=== PATIENT | male | born 1955 | race Hispanic/Latino ===

== ENCOUNTER 2022-07-28 11:44 | Emergency (ER) | payer MEDICARE, OTHER ==
--- OUTSIDE RECORDS SUMMARY | 2022-07-28 11:50 | XMS REPORT | Continuity of Care Document ---
:1955 Author Organization [facility] t Address [address] [place] [address] Care Team Providers Name Role Phone Breanne Mcfarland MD Primary Care Physician [phone] Armando Ugalde Attending Clinician Unavailable BEAU RIOS Attending Clinician Unavailable Beau Bradley Attending Clinician Rian Pedraza PT, Corina Attending Clinician Unavailable Marivel Myrick MD Attending Clinician MARIVEL MYRICK Attending Clinician Unavailable Breanne Mcfarland MD Attending Clinician Lab, Ang - Db Attending Clinician Unavailable BREANNE MCFARLAND Attending Clinician Unavailable Lianne Stephenson MD Attending Clinician LIANNE STEPHENSON Attending Clinician Unavailable Doctor Unassigned, [place] Attending Clinician Unavailable Servando Turner MD Attending Clinician SERVANDO TURNER Attending Clinician Unavailable CONNIE FRY Attending Clinician Unavailable Anjelica Guzman MD Attending Clinician ANJELICA GUZMAN Attending Clinician Unavailable Pob, [facility] Main Attending Clinician Unavailable Keenan Gallegos MD Attending Clinician KEENAN GALLEGOS Attending Clinician Unavailable Lab, Ad[facility] Fam Pob I Attending Clinician Unavailable Abdoul Ann DO Attending Clinician SANJAY CORTES Attending Clinician Unavailable Elise Arrington Attending Clinician ELISE GARCIA Attending Clinician Unavailable Sanjay Cortes MD Attending Clinician Connie Fry MD Attending Clinician Provider, [facility] Attending Clinician Unavailable REHANA CORDERO Attending Clinician Unavailable 1, [facility] Attending Clinician Unavailable BEAU RIOS Admitting Clinician Unavailable CONNIE FRY Admitting Clinician Unavailable Payers Payer Name Policy Type Policy Number Effective Date Expiration Date Ariel purvis [facility] [id number] 2022 (MEDICARE 00:00:00 REPLACEMENT HMO) YUDELKA/SOPHIA [id number] 2021 MEDICARE ADVANTAGE 00:00:00 [facility] [id number] 2018 2021 CHOICE 00:00:00 00:00:00 Problems Condition Condition Condition Status Onset Resolution Last Treating Co mments Source Name Details Category Date Date Treatment Clinician Date Cyst of Cyst of Disease Active Univers left left 7-30 ity of kidney kidney 00:00: [place] 00 Medical Branch Family Family Disease Active 2019- Univers history of history of 7-30 it y of renal renal 00:00: [place] cancer cancer 00 Medical Branch Facial Facial Disease Active 2019- Univers rash rash 7-30 ity of 00:00: [place] 00 Medical Branch Thrombocyt Thrombocyt Disease Active 2019- U nivers openia openia 7-16 ity of 00:00: [place] 00 Medical Branch Abnormal Abnormal Disease Active 2019- Overview: Un kyrie thyroid thyroid 7-16 Formattin ity o f function function 00:00: g of this [place] as test test 00 note Medical might be Branch different from the original. Elevated TSH but repeat testing showed normal TFTs and thyroid antibodie s Abnormal Abnormal Disease Active 2019- Unive rs liver liver 7-16 ity of function function 00:00: [place] tests tests 00 Medical Branch Thrombocyt Thrombocyt Disease Active 2019- U nivers openia openia 7-16 ity of 00:00: [place] 00 Medical Branch Macrocytos Macrocytos Disease Active 2019- U nivers is is 7-16 ity of 00:00: [place] 00 Medical Branch Lip tremor Lip tremor Disease Active U nivers 6-30 ity of 00:00: [place] [facility] Obesity Obesity Disease Active Univers (BMI (BMI 6-21 ity of 30-39.9) 30-39.9) 00:00: [place] [facility] Branch Fatty Fatty Disease Active Univers liver liver 6-21 ity of 00:00: [place] [facility] Branch Vitamin D Vitamin D Disease Active Uni vers deficiency deficiency 6-21 it y of 00:00: [place] [facility] Branch Type 2 Type 2 Disease Active Univers diabetes diabetes 4-03 ity of mellitus mellitus 00:00: [place] without without 00 Medical complicati complicati Br anch on, on, without without long-term long-term current current use of use of insulin insulin Allergies, Adverse Reactions, Alerts Allergy Allergy Status Severity Reaction(s) Onset Inactive Treating Comm ents Source Name Type Date Date Clinician NO KNOWN Drug Active Univers ALLERGIE Class ity of S [facility] Social History Social Habit Start Date Stop Date Quantity Comments Source History of tobacco Cigarette Smoker University of use [facility] History SDVT University o f Alcohol Frequency [facility] History [facility] University o f Alcohol Std Drinks [facility] History [facility] o f Alcohol Binge [facility] Exposure to 2021-12-12 2021-12-22 Not sure University of SARS-CoV-2 (event) 00:00:00 10:13:00 [facility] Alcohol intake 2021-12-22 2021-12-22 Ex-drinker University 00:00:00 00:00:00 (finding) [facility] Cigarettes smoked 2021-11-10 2021-11-10 Univers ity of current (pack per 00:00:00 00:00:00 [facility] ) - Reported Branch Cigarette 2021-11-10 2021-11-10 University of pack-years 00:00:00 00:00:00 [facility] Tobacco use and 2021-11-10 2021-11-10 Smokeless tobacco Un iversity of exposure 00:00:00 00:00:00 non-user [facility] Tobacco Comment 2021-11-10 2021-11-10 3-4 cigarettes a Uni versity of 00:00:00 00:00:00 day [facility] Alcohol Comment 2015-12-26 2015-12-26 socially Universit y of 00:00:00 00:00:00 [facility] Sex [birth year] Univers y of 00:00:00 00:00:00 [facility] Smoking Status Start Date Stop Date Source Ex-smoker 2021-11-10 00:00:00 2021-11-10 00:00:00 [facility] Medications Ordered Filled Start Stop Current Ordering Indication Dosage Frequency Signature Comments Components Source Medication Medication Date Date Medication? Clinician (SIG) Name Name naproxen 2021-02 Yes [id number] 500mg Take 1 U nivers 500 mg 0-25 tablet by ity of tablet 00:00: mouth (two) Medical times Branch daily as needed for Pain (scale 4-6) (use sparingly due to side effects). methocarbam 2021-02 Yes [id number] 500mg Take 1 Univers oL 500 mg 0-25 tablet by ity o f tablet 00:00: mouth 3 (three) Medical times Branch daily as needed for Other or Pain (scale 7-10) (musle spasm lumbar). naproxen 2021-02 Yes [id number] 500mg Take 1 U nivers 500 mg 0-25 tablet by ity of tablet 00:00: mouth (two) Medical times Branch daily as needed for Pain (scale 4-6) (use sparingly due to side effects). methocarbam 2021-02 Yes [id number] 500mg Take 1 Univers oL 500 mg 0-25 tablet by ity o f tablet 00:00: mouth 3 (three) Medical times Branch daily as needed for Other or Pain (scale 7-10) (musle spasm lumbar). naproxen 2021-02 Yes [id number] 500mg Take 1 U nivers 500 mg 0-25 tablet by ity of tablet 00:00: mouth 2 (two) Medical times Branch daily as needed for Pain (scale 4-6) (use sparingly due to side effects). methocarbam 2021-02 Yes [id number] 500mg Take 1 Univers oL 500 mg 0-25 tablet by ity o f tablet 00:00: mouth 3 (three) Medical times Branch daily as needed for Other or Pain (scale 7-10) (musle spasm lumbar). naproxen 2021-02 Yes [id number] 500mg Take 1 U nivers 500 mg 0-25 tablet by ity of tablet 00:00: mouth (two) Medical times Branch daily as needed for Pain (scale 4-6) (use sparingly due to side effects). methocarbam 2021-02 Yes [id number] 500mg Take 1 Univers oL 500 mg 0-25 tablet by ity o f tablet 00:00: mouth (three) Medical times Branch daily as needed for Other or Pain (scale 7-10) (musle spasm lumbar). naproxen 2021-02 Yes [id number] 500mg Take 1 U nivers 500 mg 0-25 tablet by ity of tablet 00:00: mouth (two) Medical times Branch daily as needed for Pain (scale 4-6) (use sparingly due to side effects). methocarbam 2021-02 Yes [id number] 500mg Take 1 Univers oL 500 mg 0-25 tablet by ity o f tablet 00:00: mouth (three) Medical times Branch daily as needed for Other or Pain (scale 7-10) (musle spasm lumbar). naproxen 2021-02 Yes [id number] 500mg Take 1 U nivers 500 mg 0-25 tablet by ity of tablet 00:00: mouth (two) Medical times Branch daily as needed for Pain (scale 4-6) (use sparingly due to side effects). methocarbam 2021-02 Yes [id number] 500mg Take 1 Univers oL 500 mg 0-25 tablet by ity o f tablet 00:00: mouth (three) Medical times Branch daily as needed for Other or Pain (scale 7-10) (musle spasm lumbar). naproxen 2021-02 Yes [id number] 500mg Take 1 U nivers 500 mg 0-25 tablet by ity of tablet 00:00: mouth (two) Medical times Branch daily as needed for Pain (scale 4-6) (use sparingly due to side effects). methocarbam 2021-02 Yes [id number] 500mg Take 1 Univers oL 500 mg 0-25 tablet by ity o f tablet 00:00: mouth 3 [place] 00 (three) Medical times Branch daily as needed for Other or Pain (scale 7-10) (musle spasm lumbar). methylPREDN 2021-02- No [id number] Take by [facility] ISolone 4 0-12-29 mouth ity of mg tablets 00:00: 04:59 SEE-INSTRU [place] 00 :00 CTIONS for Medical 6 days. Branch follow package directions methylPREDN 2021-02- No [id number] Take by [facility] ISolone 4 0-12-29 mouth ity of mg tablets 00:00: 04:59 SEE-INSTRU [place] 00 :00 CTIONS for Medical 6 days. Branch follow package directions linagliptin Yes [id number] 1{tbl} Take 1 Univers -metformin 9-13 tablet by ity of (JENTADUETO 00:00: mouth 2 [place] as ) 2.5-850 00 (two) Medical mg Tab times Branch daily. losartan Yes [id number] 25mg Take 1 Univers mg tablet 9-13 tablet by ity o f 00:00: mouth [place] 00 daily. Medical Branch linagliptin Yes [id number] 1{tbl} Take 1 Univers -metformin 9-13 tablet by ity of (JENTADUETO 00:00: mouth 2 [place] as ) 2.5-850 00 (two) Medical mg Tab times Branch daily. losartan Yes [id number] 25mg Take 1 Univers mg tablet 9-13 tablet by ity o f 00:00: mouth [place] 00 daily. Medical Branch linagliptin Yes [id number] 1{tbl} Take 1 Univers -metformin 9-13 tablet by ity of (JENTADUETO 00:00: mouth 2 [place] as ) 2.5-850 00 (two) Medical mg Tab times Branch daily. losartan Yes [id number] 25mg Take 1 Univers mg tablet 9-13 tablet by ity o f 00:00: mouth [place] 00 daily. Medical Branch linagliptin Yes [id number] 1{tbl} Take 1 Univers -metformin 9-13 tablet by ity of (JENTADUETO 00:00: mouth 2 [place] as ) 2.5-850 00 (two) Medical mg Tab times Branch daily. losartan Yes [id number] 25mg Take 1 Univers mg tablet 9-13 tablet by ity o f 00:00: mouth [place] 00 daily. Medical Branch linagliptin Yes [id number] 1{tbl} Take 1 Univers -metformin 9-13 tablet by ity of (JENTADUETO 00:00: mouth 2 [place] as ) 2.5-850 00 (two) Medical mg Tab times Branch daily. losartan Yes [id number] 25mg Take 1 Univers mg tablet 9-13 tablet by ity o f 00:00: mouth [place] 00 daily. Medical Branch linagliptin Yes [id number] 1{tbl} Take 1 Univers -metformin 9-13 tablet by ity of (JENTADUETO 00:00: mouth 2 [place] as ) 2.5-850 00 (two) Medical mg Tab times Branch daily. losartan Yes [id number] 25mg Take 1 Univers mg tablet 9-13 tablet by ity o f 00:00: mouth [place] 00 daily. Medical Branch linagliptin Yes [id number] 1{tbl} Take 1 Univers -metformin 9-13 tablet by ity of (JENTADUETO 00:00: mouth 2 [place] as ) 2.5-850 00 (two) Medical mg Tab times Branch daily. losartan Yes [id number] 25mg Take 1 Univers mg tablet 9-13 tablet by ity o f 00:00: mouth [place] 00 daily. Medical Branch linagliptin Yes [id number] 1{tbl} Take 1 Univers -metformin 9-13 tablet by ity of (JENTADUETO 00:00: mouth 2 [place] as ) 2.5-850 00 (two) Medical mg Tab times Branch daily. losartan Yes [id number] 25mg Take 1 Univers mg tablet 9-13 tablet by ity o f 00:00: mouth [place] 00 daily. Medical Branch linagliptin Yes [id number] 1{tbl} Take 1 Univers -metformin 9-13 tablet by ity of (JENTAD[place]ETO 00:00: mouth 2 [place] as ) 2.5-850 00 (two) Medical mg Tab times Branch daily. losartan Yes [id number] 25mg Take 1 Univers mg tablet 9-13 tablet by ity o f 00:00: mouth daily. Medical Branch methylPREDN 2021-0 Yes [id number] Take by [facility] mouth ity of (MEDROL, 00:00: SEE-INSTRU [place] as AINSLEY,) 4 mg 00 CTIONS. Medica l tablets follow Branch package directions methylPREDN 2021-0 Yes [id number] Take by [facility] 10[facility] mouth ity of (MEDROL, 00:00: SEE-INSTRU [place] as AINSLEY,) 4 mg 00 CTIONS. Medica l tablets follow Branch package directions methylPREDN 2021-0 2- No [id number] Take by [facility] 10-05- mouth ity of (MEDROL, 00:00: 00:00 [place] 4 mg 00 :00 CTIONS. Medica l tablets follow Branch package directions methylPREDN 2021-0 2- No [id number] Take by [facility] 10-05 mouth ity of (MEDROL, 00:00: 00:00 [place] 4 mg 00 :00 CTIONS. Medica l tablets follow Branch package directions naproxen 2021-0 Yes [id number] 500mg Take 1 Un kyrie 500 mg 7-27 tablet by ity of tablet 00:00: mouth (two) Medical times Branch daily with meals. naproxen 2021-0 Yes [id number] 500mg Take 1 Un [place] 500 mg 7-27 tablet by ity of tablet 00:00: mouth (two) Medical times Branch daily with meals. naproxen 2021-0 Yes [id number] 500mg Take 1 Un [place] 500 mg 7-27 tablet by ity of tablet 00:00: mouth (two) Medical times Branch daily with meals. naproxen 2-0 Yes [id number] 500mg Take 1 Un [place] 500 mg 7-27 tablet by ity of tablet 00:00: mouth (two) Medical times Branch daily with meals. naproxen 2-0 Yes [id number] 500mg Take 1 Un [place] 500 mg 7-27 tablet by ity of tablet 00:00: mouth (two) Medical times Branch daily with meals. naproxen 2022-0 Yes [id number] 500mg Take 1 Un [place] 500 mg 7-27 tablet by ity of tablet 00:00: mouth 2 [place] (two) Medical times Branch daily with meals. naproxen 2022-0 Yes [id number] 500mg Take 1 Un [place] 500 mg 7-27 tablet by ity of tablet 00:00: mouth 2 [place] (two) Medical times Branch daily with meals. naproxen 2022-0 Yes [id number] 500mg Take 1 Un [place] 500 mg 7-27 tablet by ity of tablet 00:00: mouth 2 [place] (two) Medical times Branch daily with meals. naproxen 2022-0 Yes [id number] 500mg Take 1 Un [place] 500 mg 7-27 tablet by ity of tablet 00:00: mouth 2 [place] (two) Medical times Branch daily with meals. ketoconazol 2022-0 Yes [id number] Apply to Univers e 2 % cream 6-21 area(s) ity o f 00:00: daily. [place] [facility] ketoconazol 2022-0 Yes [id number] Apply to Univers e 2 % cream 6-21 area(s) ity o f 00:00: daily. [place] [facility] ketoconazol 2022-0 Yes [id number] Apply to Univers e 2 % cream 6-21 area(s) ity o f 00:00: daily. [place] [facility] ketoconazol 2022-0 Yes [id number] Apply to Univers e 2 % cream 6-21 area(s) ity o f 00:00: daily. [place] [facility] ketoconazol 2022-0 Yes [id number] Apply to Univers e 2 % cream 6-21 area(s) ity o f 00:00: daily. [place] [facility] ketoconazol 2022-0 Yes [id number] Apply to Univers e 2 % cream 6-21 area(s) ity o f 00:00: daily. [place] [facility] ketoconazol 2022-0 Yes [id number] Apply to Univers e 2 % cream 6-21 area(s) ity o f 00:00: daily. [place] [facility] ketoconazol 2022-0 Yes [id number] Apply to Univers e 2 % cream 6-21 area(s) ity o f 00:00: daily. [place] [facility] ketoconazol Yes [id number] Apply to Univers e 2 % cream 08-18 area(s) ity o f 00:00: daily. [place] [facility] losartan 25 2021- No [id number] 25mg Take 1 Univers mg tablet 08-11 tablet by ity of 00:00: 00:00 mouth [place] 00 :00 daily. Medical Branch linagliptin 2021- No [id number] 1{tbl} Take 1 Univers -metformin 06-16 tablet by ity of ([place] 00:00: 00:00 [place] 2 [place] 2.5-850 00 :00 (two) Medical mg Tab times Branch daily. Immunizations Ordered Filled Immunization Date Status Comments [facility] e Immunization Name Name Influenza Virus 2021-11-10 Completed Universit y of Vaccine,quad 00:00:00 [place] Medica l Im,preserve Free Branch 65+ Influenza Virus 2021-11-10 Completed Universit y of Vaccine,quad 00:00:00 [place] Medica l Im,preserve Free Branch 65+ Influenza Virus 2021-11-10 Completed Universit y of Vaccine,quad 00:00:00 [place] Medica l Im,preserve Free Branch 65+ Influenza Virus 2021-11-10 Completed Universit y of Vaccine,quad 00:00:00 [place] Medica l Im,preserve Free Branch 65+ Influenza Virus 2021-11-10 Completed Universit y of Vaccine,quad 00:00:00 [place] Medica l Im,preserve Free Branch 65+ Influenza Virus 2021-11-10 Completed Universit y of Vaccine,quad 00:00:00 [place] Medica l Im,preserve Free Branch 65+ Influenza Virus 2021-11-10 Completed Universit y of Vaccine,quad 00:00:00 [place] Medica l Im,preserve Free Branch 65+ Influenza Virus 2021-11-10 Completed Universit y of Vaccine,quad 00:00:00 [place] Medica l Im,preserve Free Branch 65+ Influenza Virus 2021-11-10 Completed Universit y of Vaccine,quad 00:00:00 [place] Medica l Im,preserve Free Branch 65+ Pneumococcal 2021-08-11 Completed University o f Polysaccharide, 00:00:00 [place] [facility] ical PPSV23 (PNEUMOVAX) Branch TDAP 2021-08-11 Completed University of 00:00:00 [facility] Pneumococcal 2021-08-11 Completed University o f Polysaccharide, 00:00:00 [place] Med ical PPSV23 (PNEUMOVAX) Branch TDAP 2021-08-11 Completed University of 00:00:00 [facility] Pneumococcal 2021-08-11 Completed University o f Polysaccharide, 00:00:00 [place] Med ical PPSV23 (PNEUMOVAX) Branch TDAP 2021-08-11 Completed University of 00:00:00 [facility] Pneumococcal 2021-08-11 Completed University o f Polysaccharide, 00:00:00 [place] Med ical PPSV23 (PNEUMOVAX) Branch TDAP 2021-08-11 Completed University of 00:00:00 [facility] Pneumococcal 2021-08-11 Completed University o f Polysaccharide, 00:00:00 [place] Med ical PPSV23 (PNEUMOVAX) Branch TDAP 2021-08-11 Completed University of 00:00:00 [facility] Pneumococcal 2021-08-11 Completed University o f Polysaccharide, 00:00:00 [place] Med ical PPSV23 (PNEUMOVAX) Branch TDAP 2021-08-11 Completed University of 00:00:00 [facility] Pneumococcal 2021-08-11 Completed University o f Polysaccharide, 00:00:00 [place] Med ical PPSV23 (PNEUMOVAX) Branch TDAP 2021-08-11 Completed University of 00:00:00 [facility] Pneumococcal 2021-08-11 Completed University o f Polysaccharide, 00:00:00 [place] Med ical PPSV23 (PNEUMOVAX) Branch TDAP 2021-08-11 Completed University of 00:00:00 [facility] Pneumococcal 2021-08-11 Completed University o f Polysaccharide, 00:00:00 [place] Med ical PPSV23 (PNEUMOVAX) Branch TDAP 2021-08-11 Completed University of 00:00:00 [facility] Influenza Virus 2018-12-25 Completed Universit y of Vaccine Quad .5 mL 00:00:[address] [facility] IM 6+ MO Branch Influenza Virus 2018-12-25 Completed Universit y of Vaccine Quad .5 mL 00:00:[address] [facility] IM 6+ MO Branch Influenza Virus 2018-12-25 Completed Universit y of Vaccine Quad .5 mL 00:00:00 [facility] 6+ MO Branch Influenza Virus 2018-12-25 Completed Universit y of Vaccine Quad .5 mL 00:00:00 [place] [facility] IM 6+ MO Branch Influenza Virus 2018-12-25 Completed Universit y of Vaccine Quad .5 mL 00:00:00 [place] [facility] IM 6+ MO Branch Influenza Virus 2018-12-25 Completed Universit y of Vaccine Quad .5 mL 00:00:00 [place] [facility] IM 6+ MO Branch Influenza Virus 2018-12-25 Completed Universit y of Vaccine Quad .5 mL 00:00:00 [place] [facility] IM 6+ MO Branch Influenza Virus 2018-12-25 Completed Universit y of Vaccine Quad .5 mL 00:00:00 [place] [facility] IM 6+ MO Branch Influenza Virus 2018-12-25 Completed Universit y of Vaccine Quad .5 mL 00:00:00 [place] [facility] 6+ MO Branch Influenza High Dose 2016-12-10 Completed Unive rsity of 00:00:00 [facility] Influenza High Dose 2016-12-10 Completed Unive rsity of 00:00:00 [facility] Influenza High Dose 2016-12-10 Completed Unive rsity of 00:00:00 [facility] Influenza High Dose 2016-12-10 Completed Unive rsity of 00:00:00 [facility] Influenza High Dose 2016-12-10 Completed Unive rsity of 00:00:00 [facility] Influenza High Dose 2016-12-10 Completed Unive rsity of 00:00:00 [facility] Influenza High Dose 2016-12-10 Completed Unive rsity of 00:00:00 [facility] Influenza High Dose 2016-12-10 Completed Unive rsity of 00:00:00 [facility] Influenza High Dose 2016-12-10 Completed Unive rsity of 00:00:00 [facility] Influenza Virus 2015-12-26 Completed Universit y of Vaccine Quad IM 3+ 00:00:00 [facility] Influenza Virus 2015-12-26 Completed Universit y of Vaccine Quad IM 3+ 00:00:00 [facility] Influenza Virus 2015-12-26 Completed Universit y of Vaccine Quad IM 3+ 00:00:00 [facility] Influenza Virus 2015-12-26 Completed Universit y of Vaccine Quad IM 3+ 00:00:00 [facility] Influenza Virus 2015-12-26 Completed Universit y of Vaccine Quad IM 3+ 00:00:00 [facility] Influenza Virus 2015-12-26 Completed Universit y of Vaccine Quad IM 3+ 00:00:00 [facility] Influenza Virus 2015-12-26 Completed Universit y of Vaccine Quad IM 3+ 00:00:00 [facility] Influenza Virus 2015-12-26 Completed Universit y of Vaccine Quad IM 3+ 00:00:00 [facility] Influenza Virus 2015-12-26 Completed Universit y of Vaccine Quad IM 3+ 00:00:00 [facility] Influenza Virus 2014-12-25 Completed Universit y of Vaccine 00:00:00 [facility] Influenza Virus 2014-12-25 Completed Universit y of Vaccine 00:00:00 [facility] Influenza Virus 2014-12-25 Completed Universit y of Vaccine 00:00:00 [facility] Influenza Virus 2014-12-25 Completed Universit y of Vaccine 00:00:00 [facility] Influenza Virus 2014-12-25 Completed Universit y of Vaccine 00:00:00 [facility] Influenza Virus 2014-12-25 Completed Universit y of Vaccine 00:00:00 [facility] Influenza Virus 2014-12-25 Completed Universit y of Vaccine 00:00:00 [facility] Influenza Virus 2014-12-25 Completed Universit y of Vaccine 00:00:00 [facility] Influenza Virus 2014-12-25 Completed Universit y of Vaccine 00:00:00 [facility] Td 2012-12-25 Completed University of 00:00:00 [facility] Td 2012-12-25 Completed University of 00:00:00 [facility] Td 2012-12-25 Completed University of 00:00:00 [facility] Td 2012-12-25 Completed University of 00:00:00 [facility] Td 2012-12-25 Completed University of 00:00:00 [facility] Td 2012-12-25 Completed University of 00:00:00 [facility] Td 2012-12-25 Completed University of 00:00:00 [facility] Td 2012-12-25 Completed University of 00:00:00 [facility] Td 2012-12-25 Completed University of 00:00:00 [facility] Vital Signs Vital Name Observation Time Observation Value Comments Source Systolic blood 2021-12-22 15:35:00 151 mm[Hg] Univer sity of [facility] Medical Branch Diastolic blood 2021-12-22 15:35:00 68 mm[Hg] Unive rsity of [place] pressure [facility] Heart rate 2021-12-22 15:24:00 61 /min Universi ty [facility] Body height 2021-12-22 15:24:00 160 cm Universi ty [facility] Body weight 2021-12-22 15:24:00 80.786 kg Universi ty [facility] BMI 2021-12-22 15:24:00 31.55 kg/m2 Universi ty [facility] Oxygen saturation 2021-12-22 15:24:00 100 /min Uni versity [facility] in Arterial blood Medical Br anch by Pulse oximetry Systolic blood 2021-11-10 14:17:00 147 mm[Hg] Univer sity of [place] pressure [facility] Branch Diastolic blood 2021-11-10 14:17:00 80 mm[Hg] [facility] Heart rate 2021-11-10 14:05:00 64 /min Universi ty [facility] Body height 2021-11-10 14:05:00 160 cm Universi [facility] Body weight 2021-11-10 14:05:00 80.468 kg Universi ty [facility] BMI 2021-11-10 14:05:00 31.42 kg/m2 Universi ty [facility] Oxygen saturation 2021-11-10 14:05:00 99 /min [facility] in Arterial blood Medical Br anch by Pulse oximetry Procedures Procedure Date / Time Performed Performing Clinician Esteban e FLU 2021-11-10 14:29:59 Blanca [facility] o f [place] VACC(),65+YR Medical Br anch ,0.5 ML,IM,ADJUVANTED,QUAD (FLUAD) Encounters Start End Encounter Admission Attending Care Care Encounter Source Date/Time Date/Time Type Type Clinicians Facility Department ID 2022-07-20 Outpatient Aftab [facility] [id number] Common 09:46:02 [facility] 19246 [facility] 2022-07-02 2022-07-02 Outpatient DMG DMG [id number] Devoted 00:00:00 00:00:00 [id number] [facility] l [facility] 2022-02-16 2022-02-16 Outpatient Jodi RIOS [facility] [id number] Univers 09:30:00 09:30:00 BEAU harden [facility] 2022-01-29 2022-01-29 Outpatient DMG DMG [id number] Devoted 00:00:00 00:00:00 [id number] Medica l Group 2022-01-25 2022-01-25 [facility] [id number] [id number] Univers 00:00:00 00:00:00 Beau HEALTH 350.1.13.10 it y of [place] 4.2.7.2.686 Keith as VAIBHAV?BLEA [phone] [address] 2022-01-06 2022-01-06 Ancillary Rian Pedraza Corina [facility] 1 .2.840.114 [id number] Univers 08:45:00 09:30:00 Visit Marivel Myrick 350.1.13.10 ity of [facility] 4.2.7.2.[place] [phone] [address] 2022-01-06 2022-01-06 Outpatient [facility] [id number] Univers 08:45:00 08:45:00 MARIVEL harden [facility] 2022-01-04 2022-01-04 Telephone [facility] 1.2.929.922 [id number] Univers 00:00:00 00:00:00 Beau HEALTH 350.1.13.10 it y of [place] 4.2.7.2.686 Keith as VAIBHAV?BLEA [id number] [address] 2021-12-31 2021-12-31 Ancillary Rian MiloJeimyCorina [facility] 1 .2.840.114 [id number] Univers 14:30:00 15:36:50 Visit Marivel Myrick 350.1.13.10 ity of [facility] 4.2.7.2.[place] [phone] [address] 2021-12-28 2021-12-28 Patient Bruna [facility] 1.2.840.114 [id number] Univers 00:00:00 00:00:00 Secure Msg Breanne PAYTON 350.1.13.10 ity of [place].2.7.2.686 [place] [phone] Ny valerie [facility] 2021-12-22 2021-12-22 Outpatient R BLANCA [facility] [id number] Univers 11:07:03 23:59:00 BEAU harden [facility] 2021-12-22 2021-12-22 Office [facility] 1.2.840.114 [id number] Univers 10:30:00 11:09:34 [facility] 350.1.13.10 it y of [place] 4.2.7.2.686 Keith as VAIBHAV?BLEA [phone] [address] OFFICE [facility] 2021-11-11 2021-11-11 [facility] [id number] Univers 07:45:00 07:45:00 BEAU harden [facility] 2021-11-11 2021-11-11 Admissions Specialist Lab, Ang - [facility] 1.2.840.1 [id number] Univers 07:45:00 07:45:00 Visit Blanac Beaurenay PAUL 350.1.13.10 ity of [place] 4.2.7.2.686 Keith as VAIBHAV?BLEA [phone] [facility] OFFICE [facility] 2021-11-10 2021-11-10 Outpatient R BLANCA [facility] [id number] Univers 09:00:00 09:53:00 BEAU itzoya [facility] 2021-11-10 2021-11-10 [facility] 1.2.840.114 [id number] Univers 09:00:00 09:53:00 Visit Beau [facility] 350.1.13.10 it y of [place] 4.2.7.2.686 Keith as VAIBHAV?BLEA [id number] [address] OFFICE [facility] 2021-11-10 2021-11-10 Outpatient [facility] [id number] Univers 09:00:00 09:53:00 BEAU harden [facility] 2021-11-10 2021-11-10 Outpatient R BLANCA [facility] [id number] Univers 09:00:00 09:00:00 BEAU harden [facility] 2021-11-10 2021-11-10 Outpatient R BLANCA [facility] [id number] Univers 09:00:00 09:00:00 BEAU harden [facility] 2021-10-07 2021-10-07 Outpatient R MYRICK [facility] [id number] Univers 09:30:00 09:30:00 MARIVEL harden [facility] 2021-10-05 2021-10-05 Office [facility] 1.2.840.114 [id number] Univers 16:15:00 16:30:00 Visit [facility] 350.1.13.10 it y of [place] 4.2.7.2.686 Keith as VAIBHAV?BLEA [phone] [address] MEDICAL OFFICE [facility] 2021-10-05 2021-10-05 Outpatient [facility] [id number] Univers 16:15:00 16:15:00 BREANNE harden [facility] 2021-09-23 2021-09-23 Urgent [facility] 1.2.840.114 [id number] Univers 14:20:00 14:40:00 Care [facility] 350.1.13.10 it y of [place] 4.2.7.2.686 Keith as VAIBHAV?BLEA [phone] [facility] [address] MEDICAL OFFICE [facility] 2021-09-23 2021-09-23 Outpatient [facility] [id number] Univers 14:20:00 14:20:00 LIANNE zoya [facility] 2021-09-23 2021-09-23 Telephone [facility] 1.2.840.114 [id number] Univers 00:00:00 00:00:00 [facility] 350.1.13.10 it y of [place] 4.2.7.2.686 Keith as VAIBHAV?BLEA [phone] [address] MEDICAL OFFICE [facility] 2021-08-25 2021-08-25 Outpatient [facility] [id number] Univers 12:33:40 23:59:00 BEAU harden [facility] 2021-08-25 2021-08-25 [facility] 1.2.840.114 [id number] Univers 12:33:40 23:59:00 Encounter Beau PAYTON 350.1.13.10 ity of [place] 4.2.7.2.686 [place] [facility] [phone] [facility] [address] 2021-08-21 2021-08-21 Outpatient R BLANCA [facility] [id number] Univers 09:00:00 09:00:00 BEAU ity [facility] 2021-08-18 2021-08-18 Outpatient Jodi MCFARLAND [facility] [id number] Univers 09:00:00 09:00:00 BREANNE dereck [facility] 2021-08-18 2021-08-18 Outpatient Jodi MCFARLAND [facility] [id number] Univers 09:00:00 09:00:00 BREANNE dereck [facility] 2021-08-14 2021-08-14 Telephone [facility] 1.2.814.107 [id number] Univers 00:00:00 00:00:00 Beau HEALTH 350.1.13.10 it y of [place] 4.2.7.2.686 Keith as VAIBHAV?BLEA [phone] [facility] [address] [facility] OFFICE [facility] 2021-08-11 2021-08-11 Admissions Specialist Lab, Ang - Db [facility] 1.2.840.1 [id number] Univers 10:15:00 10:30:00 Visit Beau Rios 350.1.13.10 ity of [place] 4.2.7.2.686 Keith as VAIBHAV?BLEA [phone] [facility] OFFICE [facility] 2021-08-11 2021-08-11 Outpatient [facility] [id number] Univers 10:15:00 10:15:00 BEAU harden [facility] 2021-08-11 2021-08-11 Office [facility] 1.2.840.114 [id number] Univers 09:00:00 10:07:54 Visit Beau [facility] 350.1.13.10 it y of [place] 4.2.7.2.686 Keith as VAIBHAV?BLEA [phone] [address] MEDICAL OFFICE [facility] 2021-08-11 2021-08-11 Outpatient [facility] [id number] Univers 09:00:00 10:07:54 BEAU harden [facility] 2021-08-11 2021-08-11 Outpatient R [facility] [id number] Univers 09:00:00 10:07:54 BEAU harden [facility] 2021-06-17 2021-06-17 Telephone [facility] 1.2.840.114 [id number] Univers 00:00:00 00:00:00 Breanne [facility] 350.1.13.10 it y of [place] [facility] 4.2.7.2.686 Keith as VAIBHAV?BLEA [id number] [address] MEDICAL OFFICE [facility] 2021-06-16 2021-06-16 Outpatient R [facility] [id number] Univers 15:30:00 15:54:18 BREANNE [facility] 2021-06-16 2021-06-16 Office [facility] 1.2.840.114 [id number] Univers 15:30:00 15:54:18 Visit Breanne [facility] 350.1.13.10 it y of [place] [facility] 4.2.7.2.686 Keith as VAIBHAV?BLEA [phone] [address] MEDICAL OFFICE [facility] 2021-06-16 2021-06-16 Orders Doctor PASTRANA 1.2.840.114 [id number] Univers 00:00:00 00:00:00 Only Unassigned, LAKISHA 350.1.13.10 ity of [place] [facility] 4.2.7.2.686 Keith as [phone] [address] 2021-06-15 2021-06-15 Outpatient [facility] [id number] Univers 16:00:00 16:00:00 BEAU dereck [facility] 2021-06-15 2021-06-15 Outpatient R BLANCA [facility] [id number] Univers 16:00:00 16:00:00 BEAU ity [facility] 2020-11-07 2020-11-07 Office [facility] 1.2.840.114 [id number] Univers 12:51:07 16:27:42 Visit Candyful A Health 350.1.13.10 ity of [place] 4.2.7.2.686 Keith as Vaibhav?Blea [phone] Ny valerie spann [address] [place] [address] Office Building 2020-11-07 2020-11-07 Outpatient R JOHNNY [facility] [id number] Univers 13:00:00 13:00:00 WONDIFUL ity o f [facility] 2020-09-23 2020-09-23 Office [facility] 1.2.840.114 [id number] Univers 16:19:57 16:49:57 Visit Beau Health 350.1.13.10 it y of [place] 4.2.7.2.686 Keith as Professio [phone] Ny valerie gunderson [address] [place] [address] Office Building One 2020-09-23 2020-09-23 Outpatient R BLANCA [facility] [id number] Univers 16:30:00 16:30:00 BEAU dereck [facility] 2020-08-22 2020-08-22 Outpatient R CONNIE FRY [facility] [id number] Univers 10:30:00 10:30:00 ity of [facility] 2020-08-21 2020-08-21 Orders Doctor ZEINA 1.2.840.114 [id number] Univers 00:00:00 00:00:00 Only Unassigned, LAKISHA 350.1.13.10 ity of [place] [facility] 4.2.7.2.686 Keith as [phone] [address] 2020-08-04 2020-08-04 [facility] 1.2.840.114 [id number] Univers 18:30:00 23:59:00 Encounter Anjelica Afia [place] 350.1.13.10 ity of [place].2.7.2.686 [place] [phone] [facility] [address] 2020-08-04 2020-08-04 Outpatient R GUZMAN, [facility] [id number] Univers 00:00:00 00:00:00 ANJELICA ity [facility] 2020-08-04 2020-08-04 Orders Doctor ZEINA 1.2.840.114 [id number] Univers 00:00:00 00:00:00 Only Unassigned, LAKISHA 350.1.13.10 ity of [place] [facility] 4.2.7.2.686 Keith as [phone] [address] 2020-08-01 2020-08-01 Admissions Specialist Pob, Adc Lab Main [facility] 1.2.8 40.114 [id number] Univers 07:44:44 07:59:44 Visit Keenan Gallegos 350.1.13.10 ity of [place].2.7.2.686 [place] Profess[place] [phone] Ny dical nal [address] 2020-08-01 2020-08-01 Outpatient [facility] [id number] Univers 07:45:00 07:45:00 KEENAN [facility] 2020-08-01 2020-08-01 Orders Doctor PASTRANA 1.2.840.114 [id number] Univers 00:00:00 00:00:00 Only Unassigned, LAKISHA 350.1.13.10 ity of [place] [facility] 4.2.7.2.686 Keith as [phone] [facility] [address] 2020-06-20 2020-06-20 Telephone Johnny [facility] 1.2.840.114 [id number] Univers 00:00:00 00:00:00 Wondiful A Health 350.1.13.10 ity of [place] 4.2.7.2.686 Keith as Professio [phone] Ny dical nal [address] Office Building One 2020-06-13 2020-06-13 Admissions Specialist Lab, Adc Fam Pob I [facility] 1.2. 840.114 [id number] Univers 08:02:23 08:21:33 Visit Dimas Turnergalina [facility] 350.1.13.1 0 ity of [place] 4.2.7.2.686 Keith as Professio [phone] [address] [facility] One 2020-06-13 2020-06-13 Outpatient [facility] [id number] Univers 08:20:00 08:20:00 WONDIFUL ity o f [facility] 2020-06-12 2020-06-12 Office [facility] 1.2.840.114 [id number] Univers 15:44:35 16:33:44 Visit Wondiful A Health 350.1.13.10 ity of [place] 4.2.7.2.686 Keith as Professio [phone] [address] One 2020-06-12 2020-06-12 Outpatient R JOHNNY [facility] [id number] Univers 15:45:00 15:45:00 WONDIFUL ity o f [facility] 2020-05-22 2020-05-22 Telephone [facility] 1.2.840.114 [id number] Univers 00:00:00 00:00:00 Wondiful A Health 350.1.13.10 ity of [place] 4.2.7.2.686 Keith as Professio [phone] [address] [facility] One 2020-05-07 2020-05-07 Patient Seth [facility] 1.2.840.114 [id number] Univers 00:00:00 00:00:00 Outreach Abdoul PRIMARY 350.1.13.10 i ty of [facility] 4.2.7.2.686 [place] [phone] [address] 2020-04-09 2020-04-09 Orders Doctor ZEINA 1.2.840.114 [id number] Univers 00:00:00 00:00:00 Only Unassigned, LAKISHA 350.1.13.10 ity of [place] [facility] 4.2.7.2.686 Keith as [phone] [address] 2020-03-03 2020-03-03 Outpatient R SANJAY CORTES [facility] [id number] Univers 08:00:00 08:00:00 ity [facility] 2019-12-26 2019-12-26 Admissions Specialist Ksenia, [facility] 1.2.840.114 [id number] 08:07:17 08:22:17 Visit Lab Main [place] 350.1.13.10 [place] 4.2.7.2.686 Professio [phone] [address] 2019-12-26 2019-12-26 Admissions Specialist Ksenia, [facility] Lab Main [facility] 1.2.8 40.114 [id number] [facility] 08:07:17 08:22:17 Visit Elise Garcia 350.1.13.1 0 ity of [place].2.7.2.686 [place] Profess[place] [phone] Ny dical [address] 2019-12-26 2019-12-26 Outpatient R JOSE [facility] [id number] Univers 08:15:00 08:15:00 ELISE ity [facility] 2019-12-24 2019-12-24 Orders Doctor PASTRANA 1.2.840.114 [id number] 00:00:00 00:00:00 Only Unassigned, LAKISHA 350.1.13.10 [place] [facility] 4.2.7.2.686 [phone] 2019-12-24 2019-12-24 Orders Doctor PASTRANA 1.2.840.114 [id number] Univers 00:00:00 00:00:00 Only Unassigned, LAKISHA 350.1.13.10 ity of [place] [facility] 4.2.7.2.686 Keith as [phone] [address] 2019-09-15 2019-09-15 Orders Doctor PASTRANA 1.2.840.114 [id number] 00:00:00 00:00:00 Only Unassigned, LAKISHA 350.1.13.10 [place] [facility] 4.2.7.2.686 [phone] 009 2019-09-15 2019-09-15 Orders Doctor PASTRANA 1.2.840.114 [id number] Univers 00:00:00 00:00:00 Only Unassigned, LAKISHA 350.1.13.10 ity of [place] [facility] 4.2.7.2.686 Keith as [phone] [facility] [address] 2019-09-04 2019-09-04 [facility] 1.2.840.114 [id number] 07:40:00 23:59:00 Encounter Anjelica M [place] 350.1.13.10 [place] 4.2.7.2.686 [place] [phone] [id number] 2019-09-04 2019-09-04 [facility] 1.2.840.114 [id number] Univers 07:40:00 23:59:00 Encounter Anjelica M [place] 350.1.13.10 ity of [place] 4.2.7.2.686 [place] [phone] [facility] [address] [place] [address] 2019-09-04 2019-09-04 Admissions Specialist Rudy Mccormack [facility] 1.2.840.114 [id number] 09:01:43 09:16:43 Visit Lab Main [place] 350.1.13.10 [place] 4.2.7.2.686 Professio [phone] [address] 2019-09-04 2019-09-04 Admissions Specialist Rudy Mccormack Lab Main [facility] 1.2.8 40.114 [id number] [facility] 09:01:43 09:16:43 Visit Sanjay Cortes [place] 350.1.13.10 ity of [place] 4.2.7.2.686 [place] [facility] [phone] Ny dical [address] 2019-09-04 2019-09-04 Outpatient R MICHELLE [facility] [id number] Univers 00:00:00 00:00:00 ANJELICA ity of [facility] 2019-08-24 2019-08-24 Office Connie Fry [facility] 1.2.840.114 [id number] 10:35:57 11:13:00 Visit Health 350.1.13.10 [place] 4.2.7.2.686 Perrin [phone] Medical 2 Office Building 2019-08-24 2019-08-24 Office Connie Fry [facility] 1.2.840.114 [id number] Univers 10:35:57 11:13:00 Visit Health 350.1.13.10 it y of [place] 4.2.7.2.686 [place] [phone] [place] 935522 [place] Office Building 2019-08-24 2019-08-24 Outpatient R CONNIE FRY [facility] [id number] Univers 11:00:00 11:00:00 ity of [facility] 2019-08-01 2019-08-01 Urgent Provider, [facility] 1.2.840.114 [id number] Univers 10:46:16 11:06:16 Care Beau Rios Health 350.1.13.10 ity of [place] 4.2.7.2.686 Keith as Professio [phone] [address] Office Building One 2019-08-01 2019-08-01 Outpatient R [facility] [id number] Univers 10:40:00 10:40:00 ity of [facility] 2019-06-28 2019-06-28 Telephone Johnny [facility] 1.2.840.114 [id number] Univers 00:00:00 00:00:00 Wondiful A [place] 350.1.13.10 ity of [place] 4.2.7.2.686 [place] Profess[place] [phone] [address] 2019-06-26 2019-06-26 Outpatient R JOHNNY [facility] [id number] Univers 08:00:00 08:00:00 WONDIFUL ity o f [facility] 2019-06-26 2019-06-26 Telemedici Johnny [facility] 1.2.840.114 [id number] Univers 06:53:36 07:08:36 ne Visit Wondiful A [place] 350.1.13.10 ity of [place] 4.2.7.2.686 [place] Profess[place] [phone] Ny dical nal [address] [place] [address] 2019-06-26 2019-06-26 Case Johnny [facility] 1.2.840.114 [id number] Univers 00:00:00 00:00:00 Management [employer] 350.1.13.10 ity of [place] 4.2.7.2.686 Keith as [facility] [phone] Ny valerie Palumbo [place] Office [facility] One 2019-06-25 2019-06-25 Outpatient R REHANA CORDERO [facility] [id number] Univers 08:00:00 08:00:00 ity of [facility] 2019-06-25 2019-06-25 Orders Doctor ZEINA 1.2.840.114 [id number] Univers 00:00:00 00:00:00 Only Unassigned, LAKISHA 350.1.13.10 ity of [place] [facility] 4.2.7.2.686 Keith as [phone] [address] 2019-04-12 2019-04-12 [facility] Connie Fry 1.2.840.114 [id number] Univers 08:40:00 23:59:00 Encounter SPECIALTY 350.1.13.10 ity of C[place].2.7.2.686 [place] CENTER AT [phone] Ny sonidorudy COURTNEY 804 [facility] 2019-04-12 2019-04-12 [facility] Connie Fry 1.2.840.114 [id number] Univers 08:39:00 08:39:00 Encounter SPECIALTY 350.1.13.10 ity of C[place] 4.2.7.2.686 [place] CENTER AT [phone] Ny sonidorudy COURTNEY 805 [facility] 2019-04-12 2019-04-12 [facility] Connie Fry 1.2.840.114 [id number] Univers 08:39:00 08:39:00 Encounter SPECIALTY 350.1.13.10 ity of [place] 4.2.7.2.686 [place] CENTER AT [phone] Ny valerie COURTNEY 5 [facility] 2019-04-12 2019-04-12 Outpatient R CONNIE FRY [facility] [id number] Univers 08:37:10 08:38:00 ity of [facility] 2019-04-12 2019-04-12 [facility] Connie Fry 1.2.840.114 [id number] Univers 08:37:00 08:38:00 Encounter SPECIALTY 350.1.13.10 ity of CARE 4.2.7.2.686 [facility] [phone] Ny valerie MADDENY 805 [facility] 2018-10-16 2018-10-16 Orders Doctor ZEINA 1.2.840.114 [id number] Univers 00:00:00 00:00:00 Only Unassigned, LAKISHA 350.1.13.10 ity of [place] [facility] 4.2.7.2.686 Keith as [phone] [facility] [address] [place] 2018-09-26 2018-09-26 Office Johnny [facility] 1.2.840.114 [id number] [facility] 08:34:58 11:14:14 Visit Wondiful A Health 350.1.13.10 ity of [place] 4.2.7.2.686 Keith as Professio [phone] Ny valerie gunderson [address] [place] Office Building One 2018-09-12 2018-09-26 Admissions Specialist 1, Adc Lab [facility] 1.2.840.114 [id number] Univers 12:14:07 08:01:23 Visit Servando Turner [place] 350.1.13. 10 ity of [place] 4.2.7.2.686 [facility] [phone] [facility] [address] [place] 2018-09-22 2018-09-22 [facility] 1.2.840.114 [id number] Univers 07:43:17 23:59:00 Encounter M [place] 350.1.13.10 ity of [place] 4.2.7.2.686 [facility] [phone] [facility] [address] [place] 2018-09-22 2018-09-22 Orders Doctor ZEINA 1.2.840.114 [id number] Univers 00:00:00 00:00:00 Only Unassigned, LAKISHA 350.1.13.10 ity of [place] [facility] 4.2.7.2.686 Keith as [phone] [facility] [address] [place] 2018-09-20 2018-09-20 Telephone Johnny [facility] 1.2.840.114 [id number] Univers 00:00:00 00:00:00 Wondiful A Health 350.1.13.10 ity alex [place] 4.2.7.2.686 Keith as Gretchen [phone] Ny dical nal [address] Office Building One Results Test Description Test Time Test Comments Results Result Comments Source HEMOGLOBIN A1c 2021-04-22 06:00:03 Test Item Value Reference Range Interpretation Comme nts HEMOGLOBIN A1c (test code = 9.3 % 4.2-5.6 H [employer] 60312) GUIDELINES FOR HGB A1C: PREDIABETES/INC REASED RISK . . . . . . . 5.7-6.4% DIAGNO SIS OF DIABETES . . . . . . . . . >=6.5% WITH CONFIRMATION OR APPROPRIATE SYM PTOMS NOTE: ASSAY MAY BE AFFECTED BY HEM OGLOBINOPATHIES (SICKLE CELL ANEMIA, S- C DISEASE, OTHERS) OR ARTIFICIALLY LO WERED BY DECREASED RED CELL SURVIVAL ( HEMOLYTIC ANEMIAS, BLOOD LOSS, ETC.). CO NSIDER ALTERNATE TESTING OR LABORATORY C ONSULTATION. ALBUMIN/CREATININE RATIO, URINE, [id number] 05:40:15 Test Item Value Reference Range Interpretation Comments CREATININE, URINE, 156.3 MG/DL NOT ESTAB RANDOM (test code = 2072) ALBUMIN, URINE, 1.9 MG/DL NOT ESTAB RANDOM (test code = 36586) CALC 12 MG/G <30 Note: ALBUMIN/CREAT, RND Albumin/C reatinine ratio (test code = reference inter rita 35670) reflects ADA an d NKF guidelines. UNL ESS OTHERWISE INDIC ATED, ALL TESTING PERFORM ED ATCLINICAL PATH [facility]. [address] [place] [id number] LABORATORY DIRE CTOR: YAHIR MARTE M.D. CLIA NUMBER [id number] [place] [id number] COMPREHENSIVE METABOLIC [id number] 04:24:01 Test Item Value Reference Range Interpretation Comments GLUCOSE (test code = 188 MG/DL 70-99 H 2216) BUN (test code = 13 MG/DL 10-20) CREATININE (test 0.69 MG/DL 0.80-1.40 L code = 2214) eGFR (2020 CKD-EPI) 103 >60 (test code = 92075) ML/MIN/1.73 CALC BUN/CREAT (test 19 RATIO -28 code = 2235) SODIUM (test code = 137 MEQ/L 768-097 2865) POTASSIUM (test code 4.3 MEQ/L 3.5-5.4 = 2227) CHLORIDE (test code 98 MEQ/L 95-107 = 2214) CARBON DIOXIDE (test 23 MEQ/L 19-31 code = 2206) CALCIUM (test code = 9.6 MG/DL 8.5-10.5 2208) PROTEIN, TOTAL (test 7.3 G/DL 6.1-8.3 code = 222) ALBUMIN (test code = 4.5 G/DL 3.5-5.2 2200) CALC GLOBULIN (test 2.8 G/DL 1.9-3.7 code = 224) CALC A/G RATIO (test 1.6 RATIO 1.0-2.6 code = 223) BILIRUBIN, TOTAL 0.6 MG/DL See_Comment [Automated message] (test code = 220) The syste [employer] which generated this result transmit blaire reference range : <=1.2. The refe rence range was not u sed to interpret th is result as normal/abnormal . ALKALINE PHOSPHATASE 146 U/L 40-123 H (test code = 2203) AST (test code = 71 U/L 9-50 H 2217) ALT (test code = 111 U/L 5-50 H 2218) LIPID [id number] 04:24:01 Test Item Value Reference Range Interpretation Comments CHOLESTEROL (test 169 MG/DL <200 code = 2210) TRIGLYCERIDES (test 135 MG/DL <150 code = 2232) HDL CHOLESTEROL (test 50 MG/DL >39 code = 2220) CALC LDL CHOL (test 96 MG/DL <100 NOTE: C ALCULATED LDL code = 2237) IS BASED ON TRAM-BRAGA METHOD WHICHINCLUDES ADJUSTABLE TRIGLYCERIDE:VL DL CHOLESTEROL RAT IO.THIS FACTOR VARIES B Y MEASURED TRIGLY CERIDE AND NON-HDLCHOL ESTEROL CONCENTRATIONS WITH INCREASED CALCU LATED LDL SEENIN HIGH ER TRIGLYCERIDE OR LOWER NON-HDL SPECIME NS. FOR MOREINFORMATION , SEE CLIENT ANNOUNCE MENT AT [email or web address] RISK RATIO LDL/HDL 1.92 RATIO <3.55 (test code = [phone]
--- NOTE | 2022-07-28 12:22 | EDPHYS ---
Physician Documentation [facility] Name: Garry Galan Age: 67 yrs Sex: Male : 1955 Arrival Date: 07/28/2022 Time: 11:44 Bed DIS6 Private MD: [facility] ED Physician Ketan Quigley HPI: 07/28 13:04 This 67 yrs old Male presents to ER via Ambulatory with complaints of Low Back kb Pain, Leg Pain. 13:04 The patient presents with pain that is acute, with no known mechanism of injury. The kb symptoms are located in the left low back. The pain radiates to the left leg. The problem was sustained without known cause. Onset: The symptoms/episode began/occurred 3 day(s) ago. Modifying factors: The patient symptoms are alleviated by nothing, the patient symptoms are aggravated by any movement. Associated signs and symptoms: The patient has no apparent associated signs or symptoms. Severity of symptoms: At their worst the symptoms were moderate, in the emergency department the symptoms are unchanged. The patient has experienced similar episodes in the past. The patient has not recently seen a physician. Historical: - Allergies: 12:14 No Known Allergies; mb9 - Home Meds: 12:14 Jentadueto oral [Active]; mb9 - PMHx: 12:14 Diabetes mellitus; Chronic back pain; mb9 - PSHx: 12:14 None; mb9 - Immunization history:: Adult Immunizations up to date. - Social history:: Smoking status: Patient denies any tobacco usage or history of. ROS: 12:58 Constitutional: Negative for fever, chills, and weight loss. kb 12:58 Back: Positive for pain at rest, pain with movement, radiated pain, of the left low back. 12:58 All other systems are negative. Exam: 12:58 Constitutional: This is a well developed, well nourished patient who is awake, alert, kb and in no acute distress. Head/Face: Normocephalic, atraumatic. ENT: Moist Mucous membranes Cardiovascular: Regular rate and rhythm with a normal S1 and S2. No gallops, murmurs, or rubs. No pulse deficits. Respiratory: Respirations even and unlabored. No increased work of breathing. Talking in full sentences Abdomen/GI: Soft, non-tender. No distention Skin: Warm, dry with normal turgor. Normal color. MS/ Extremity: Pulses equal, no cyanosis. Neurovascular intact. Full, normal range of motion. Neuro: Awake and alert, GCS 15, oriented to person, place, time, and situation. Moves all extremities. Normal gait. 12:58 Back: pain, that is moderate, of the left low back, ROM is painful, with all movement, normal spinal alignment noted, CVA tenderness, is absent, vertebral tenderness, is not appreciated. Vital Signs: 12:11 BP 139 / 75; Pulse 62; Resp 18; Temp 98.2(O); Pulse Ox 100% ; Weight 74.84 kg; Height 5 mb9 ft. 5 in. ; Pain 8/10; 13:06 BP 131 / 71; Pulse 69; Resp 18; Pulse Ox 99% ; kb3 12:11 Body Mass Index 27.46 (74.84 kg, 165.1 cm) mb9 12:11 Pain Scale: Adult mb9 MDM: 12:22 Patient medically screened. kb 12:59 Differential diagnosis: arthritis, strain, fracture, sciatica, Herniated disc UTI. Data kb reviewed: vital signs, nurses notes. Test considered but Not performed: Labs: UA considered, but pt has no urinary complaints, no CVA tenderness and has had this pain multiple times in the past due to sciatica. X-ray: lumbar spine x-ray considered, but pt has had no injury. This pain is similar to something he had in the past with sciatica. Historians other than the Patient: Daughter/Son: daughter. Counseling: I had a detailed discussion with the patient and/or guardian regarding: the historical points, exam findings, and any diagnostic results supporting the discharge/admit diagnosis, the need for outpatient follow up, a family practitioner, to return to the emergency department if symptoms worsen or persist or if there are any questions or concerns that arise at home. ED course: Pt has follow up appt with PCP on 08/18/22. Administered Medications: 13:00 Drug: Dexamethasone IM 10 mg Route: IM; Site: right ventrogluteal; kb3 13:07 Follow up: Response: No adverse reaction kb3 13:00 Drug: Ketorolac IM 30 mg Route: IM; Site: left ventrogluteal; kb3 13:07 Follow up: Response: No adverse reaction kb3 Disposition Summary: 07/28/22 12:22 Discharge Ordered Location: Home kb Condition: Stable kb Diagnosis - Sciatica, left side kb Followup: kb - With: Emergency Department - When: As needed - Reason: Worsening of condition Followup: kb - With: Private Physician - When: 2 - 3 days - Reason: Recheck today's complaints, Continuance of care, Re-evaluation by your physician Discharge Instructions: - Discharge Summary Sheet kb - Sciatica, [id number] kb Forms: - Medication Reconciliation Form kb - Thank You Letter kb - Antibiotic Education kb - Prescription Opioid Use kb Prescriptions: - Prednisone 20 mg Oral Tablet - take 1 tablet by ORAL route once daily for 5 days; 5 tablet; Refills: 0, kb Product Selection Permitted - Tramadol 50 mg Oral Tablet - take 1 tablet by ORAL route every 8 hours as needed; 12 tablet; Refills: 0, kb Product Selection Permitted - orphenadrine citrate 100 mg Oral Tablet Sustained Release - take 1 tablet by ORAL route 2 times per day As needed; 20 tablet; Refills: 0, kb Product Selection Permitted Signatures: Amina Cohn, INVISIBLE BRACES ORTHODONTIST-C INVISIBLE BRACES ORTHODONTIST-Ckb Caroline Dobbins, RN RN kb3 Angelina Eagle RN RN mb9
--- NOTE | 2022-07-28 12:22 | ER ---
Nurse's Notes [facility] Name: Garry Galan Age: 67 yrs Sex: Male : 1955 Arrival Date: 07/28/2022 Time: 11:44 Bed DIS6 Private MD: Armando Ugalde Diagnosis: Sciatica, left side Presentation: 07/28 12:11 Chief complaint: Patient's son or daughter states: "He has chronic pain in his left mb9 back that runs down to the bottom of his leg. He's been told its a sciatic nerve and the pain started 3 days ago. Now the pain is bad and bothers him sitting down, laying, and walking.". Coronavirus screen: Vaccine status: Patient reports receiving the 2nd dose of the covid vaccine. Ebola Screen: No symptoms or risks identified at this time. Initial Sepsis Screen: Does the patient meet any 2 criteria? No. Patient's initial sepsis screen is negative. Does the patient have a suspected source of infection? No. Patient's initial sepsis screen is negative. Risk Assessment: Do you want to hurt yourself or someone else? Patient reports no desire to harm self or others. Onset of symptoms. 12:11 Method Of Arrival: Ambulatory 9 12:11 Acuity: LUCIEN 4 mb9 Triage Assessment: 12:15 General: Appears in no apparent distress. Behavior is calm, cooperative. Pain: mb9 Complains of pain in back Pain radiates to left leg Pain currently is 8 out of 10 on a pain scale. Quality of pain is described as throbbing, Pain began 2-3 days ago. Is intermittent, chronic, Aggravated by increased activity, repositioning. Neuro: Loza Agitation-Sedation Scale (RASS): 0 - Alert and Calm Level of Consciousness is awake, alert, obeys commands, Oriented to person, place, time, situation, Appropriate for age. Cardiovascular: Patient's skin is warm and dry. Respiratory: Airway is patent Respiratory effort is even, unlabored, Respiratory pattern is regular, symmetrical. Derm: Skin is pink, warm \\T\\ dry. Musculoskeletal: Range of motion: intact in all extremities. Historical: - Allergies: 12:14 No Known Allergies; mb9 - Home Meds: 12:14 Jentadueto oral [Active]; mb9 - PMHx: 12:14 Diabetes mellitus; Chronic back pain; mb9 - PSHx: 12:14 None; mb9 - Immunization history:: Adult Immunizations up to date. - Social history:: Smoking status: Patient denies any tobacco usage or history of. Screenin:16 [facility] ED Fall Risk Assessment (Adult) History of falling in the last 3 months, mb9 including since admission No falls in past 3 months (0 pts) Confusion or Disorientation No (0 pts) Intoxicated or Sedated No (0 pts) Impaired Gait No (0 pts) Mobility Assist Device Used No (0 pt) Altered Elimination No (0 pt) Score/Fall Risk Level 0 - 2 = Low Risk Oriented to surroundings, Maintained a safe environment, Educated pt \\T\\ family on fall prevention, incl call for assistance when getting out of bed. Abuse screen: Denies threats or abuse. Nutritional screening: No deficits noted. Tuberculosis screening: No symptoms or risk factors identified. Assessment: 12:16 Reassessment: see triage assessment. mb9 Vital Signs: 12:11 BP 139 / 75; Pulse 62; Resp 18; Temp 98.2(O); Pulse Ox 100% ; Weight 74.84 kg; Height 5 mb9 ft. 5 in. ; Pain 8/10; 13:06 BP 131 / 71; Pulse 69; Resp 18; Pulse Ox 99% ; kb3 12:11 Body Mass Index 27.46 (74.84 kg, 165.1 cm) mb9 12:11 Pain Scale: Adult mb9 ED Course: 11:50 Patient arrived in ED. im 11:51 Armando Ugalde DO is Private Physician. im 12:10 Amin[facility]ohn [facility]C [facility]. kb 12:10 Ketan Quigley MD is Attending Physician. kb 12:14 Triage completed. mb9 12:14 Arm band placed on. mb9 12:17 No provider procedures requiring assistance completed. Patient did not have IV access mb9 during this emergency room visit. 13:07 Patient has correct armband on for positive identification. kb3 Administered Medications: 13:00 Drug: Dexamethasone IM 10 mg Route: IM; Site: right ventrogluteal; kb3 13:07 Follow up: Response: No adverse reaction kb3 13:00 Drug: Ketorolac IM 30 mg Route: IM; Site: left ventrogluteal; kb3 13:07 Follow up: Response: No adverse reaction kb3 Medication: 12:17 VIS not applicable for this client. mb9 Outcome: 12:22 Discharge ordered by . concepción 13:07 Discharged to home ambulatory, with family. kb3 13:07 Condition: stable 13:07 Discharge instructions given to patient, family, Instructed on discharge instructions, follow up and referral plans. medication usage, Demonstrated understanding of instructions, follow-up care, medications, Prescriptions given X 3. 13:08 Patient left the ED. kb3 Signatures: Amina Cohn, FRUIT TESTER-C FRUIT TESTER-Caroline Baptiste, RN RN kb3 Angelina Eagle RN RN mb9 Iva Joe
[2022-07-28] MEDS ORDERED: KETOROLAC 30 MG/ML INJ ONE (13:03)
[2022-07-28] MEDS ORDERED: dexAMETHasone 10 MG/ML VIAL ONE (13:03)
[2022-07-28 13:12] VITALS: TEMP 98.2
[2022-07-28 13:14] VITALS: BP 131/71; O2SAT 99
== END 2022-07-28 13:08 | disposition home or self-care (01) ==
LOC: ER 11:44
DX: M54.32 Sciatica, left side (principal)
CPT/HCPCS: 96372; 99284; J1100

== ENCOUNTER 2022-11-10 10:42 | Day surgery (SDC) | payer MEDICARE ==
[2022-11-10] MEDS ORDERED: NA CHLORIDE 0.9% 500 ML ONE (11:12)
[2022-11-10] MEDS ORDERED: TRIAMCINOLONE ACETON 40 MG/ML VIAL ONE ×2 (11:45→11:49)
[2022-11-10] MEDS ORDERED: BUPIVACAINE 0.25% PF 10 ML VIAL ONE (11:45)
[2022-11-10] MEDS ORDERED: propofoL 200 MG/20 ML VIAL IV ONE (12:54)
[2022-11-10] MEDS ORDERED: LIDOCAINE 2% MPF 5 ML VIAL ONE (12:54)
[2022-11-10] MEDS: LIDOCAINE 1% 20 ML MDV ONE ×2 (12:58→13:36)
[2022-11-10 13:41] VITALS: TEMP 99.1; O2SAT 99
[2022-11-10 14:14] VITALS: BP 129/64
--- NOTE | 2022-11-10 14:25 | RAD REPORT ---
EXAM DESCRIPTION: RAD - Fluoroscopy <1 Hour - 11/10/2022 1:59 pm CLINICAL HISTORY: LEFT L5-S1 STEROID INJECTION COMPARISON: None available. FINDINGS: Three Images were sent to PACS, documenting needle positions during an image guided steroi d injection pain procedure. No radiologist was available for the procedure, nor will any image interp retation he provided. Please refer to the procedural report for additional details. Fluoroscopy time: 0.2 Minutes. IMPRESSION: Documentation of fluoroscopy utilization as above.
== END 2022-11-10 13:58 | disposition home or self-care (01) ==
LOC: OR 10:42
PROVIDERS: ATTEND Pain Medicine Interventional Pain Medicine
PROC: 3E0S33Z Introduction of Anti-inflammatory into Epidural Space, Percutaneous Approach (ICD-10-PCS; principal; 2022-11-10 12:15)
DX: M54.16 Radiculopathy, lumbar region (principal); M60.89 Other myositis, multiple sites; G89.4 Chronic pain syndrome; M48.062 Spinal stenosis, lumbar region with neurogenic claudication; Z79.899 Other long term (current) drug therapy
CPT/HCPCS: 82947; 62323; J2704; J2001 ×2; J3301 ×2; J7040; Q9967; 76000